=== PATIENT | female | born 1985 | race Caucasian/White ===

== ENCOUNTER 2017-06-03 12:21 | Emergency (ER) | payer OTHER ==
[2017-06-03 12:33] VITALS: BP 125/69; PULSE 72; TEMP 97.1; BMI 28.3
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
[2017-06-03] MEDS ORDERED: KETOROLAC TROMETHAMINE 60 MG/2 ML VIAL IM ONE (13:13)
[2017-06-03] MEDS ORDERED: KETOROLAC TROMETHAMINE 60 MG/2 ML VIAL ONE (13:17)
== END 2017-06-03 13:43 | disposition home or self-care (01) ==
LOC: JERFT 12:21
PROC: 3E0233Z Introduction of Anti-inflammatory into Muscle, Percutaneous Approach (ICD-10-PCS; principal; 2017-06-03)
DX: S13.4XXA Sprain of ligaments of cervical spine, initial encounter (principal); V49.49XA Driver injured in collision with other motor vehicles in traffic accident, initial encounter; Y92.488 Other paved roadways as the place of occurrence of the external cause; Y93.89 Activity, other specified; Y99.8 Other external cause status
CPT/HCPCS: 84703; 99281-25

== ENCOUNTER 2021-04-12 13:40 | Emergency (ER) | payer OTHER ==
[2021-04-12 14:01] VITALS: BP 138/88; PULSE 88; TEMP 98.9; BMI 37.0
[2021-04-12] MEDS ORDERED: FAMOTIDINE 20 MG TABLET PO ONE (14:24)
[2021-04-12] MEDS ORDERED: diphenhydrAMINE HCL 25 MG CAPSULE (FP) PO ONE ×2 (14:24→14:28)
[2021-04-12] MEDS ORDERED: predniSONE 20 MG TABLET (UD) PO ONE (14:24)
[2021-04-12] MEDS ORDERED: predniSONE 20 MG TABLET (UD) ONE (14:28)
[2021-04-12] MEDS ORDERED: FAMOTIDINE 20 MG TABLET ONE (14:28)
== END 2021-04-12 15:47 | disposition home or self-care (01) ==
LOC: FER 13:40
DX: R21 Rash and other nonspecific skin eruption (principal); T78.40XA Allergy, unspecified, initial encounter
CPT/HCPCS: 93005; 93010; 99285-25

== ENCOUNTER 2021-10-07 12:09 | Emergency (ER) | payer OTHER ==
[2021-10-07 12:20] VITALS: BP 123/72; PULSE 68; TEMP 98.9; BMI 37.0
[2021-10-07] MEDS ORDERED: IBUPROFEN 400 MG TABLET (FP) PO ONE ×2 (12:41→12:45)
[2021-10-07] MEDS ORDERED: CYCLOBENZAPRINE HCL 5 MG TABLET PO ONE (12:41)
[2021-10-07] MEDS ORDERED: ACETAMINOPHEN 500 MG TABLET (FP) PO ONE (12:41)
[2021-10-07] MEDS ORDERED: LIDOCAINE 5% TOPICAL PATCH TP ONE ×3 (12:41→12:59)
[2021-10-07] MEDS ORDERED: CYCLOBENZAPRINE HCL 5 MG TABLET ONE (12:45)
[2021-10-07] MEDS ORDERED: ACETAMINOPHEN 500 MG TABLET (FP) ONE (12:45)
[2021-10-07] MEDS ORDERED: LIDOCAINE 5% TOPICAL PATCH ONE ×3 (12:46→13:02)
[2021-10-07] MEDS ORDERED: LIDOCAINE PATCH REMOVAL MC SCH ×3 (22:00)
== END 2021-10-07 13:54 | disposition home or self-care (01) ==
LOC: FER 12:09
DX: S29.012A Strain of muscle and tendon of back wall of thorax, initial encounter (principal); W01.0XXA Fall on same level from slipping, tripping and stumbling without subsequent striking against object, initial encounter
CPT/HCPCS: 93005; 99283-25